=== PATIENT | female | born 1980 | race Caucasian/White ===

== ENCOUNTER → 2017-09-26 | Outpatient (REF) | payer OTHER | LOC: M LAB REF 09:19 | DX: J02.9 Acute pharyngitis, unspecified (principal) ==

== ENCOUNTER → 2018-10-18 | Outpatient (REF) | payer OTHER ==
[2018-10-21 14:14] LABS: HPV HYBRID CAPTURE II Negative (Negative)
== END ==
LOC: M LAB REF 18:44
PROVIDERS: ATTEND Advanced Practice Midwife
DX: Z12.4 Encounter for screening for malignant neoplasm of cervix (principal); R87.615 Unsatisfactory cytologic smear of cervix
CPT/HCPCS: 87624; G0123

== ENCOUNTER → 2019-02-11 | Outpatient (REF) | payer OTHER ==
[2019-02-11 17:30] LABS: APPEARANCE, URINE CLOUDY (CLEAR); BACTERIA, URINE AUTO NEGATIVE (NEGATIVE); BILIRUBIN, URINE AUTO NEGATIVE (NEGATIVE); BLOOD, URINE BLOOD 1+ (NEGATIVE); COLOR, URINE YELLOW (YELLOW); GLUCOSE, URINE (UA) AUTO NEGATIVE (NEGATIVE); KETONE, URINE AUTO NEGATIVE (NEGATIVE); LEUKOCYTE ESTERASE, URINE AUTO 3+ (NEGATIVE); MUCUS, URINE SMALL (NEGATIVE); NITRITE, URINE AUTO NEGATIVE (NEGATIVE); PROTEIN, URINE AUTO NEGATIVE (NEGATIVE); RBC, URINE AUTO 18 /HPF (0-3); SPECIFIC GRAVITY URINE AUTO 1.019 (1.002-1.035); SQUAMOUS EPITHELIAL CELL UR AU 2 /HPF (0-6); UROBILINOGEN, URINE AUTO 0.2 mg/dL (0.0-2.0); WBC, URINE AUTO 177 /HPF (0-3)
== END ==
LOC: M LAB REF 16:30
PROVIDERS: ATTEND Physician Assistant
DX: N39.0 Urinary tract infection, site not specified (principal)

== ENCOUNTER → 2019-03-28 | Outpatient (CLI) | payer OTHER ==
[2019-03-28 19:22] LABS: BASO % 0.5 % (0.0-1.0); EOS # 0.1 10^3/uL (0.0-0.5); EOS % 1.6 % (0.0-3.0); HEMATOCRIT 36.9 % (36.0-47.0); LYMPH # 1.1 10^3/uL (1.5-5.0); LYMPH % 17.2 % (24.0-44.0); MEAN CORPUSCULAR HEMOGLOBIN 30.2 pg (27.0-33.0); MEAN CORPUSCULAR HGB CONC 32.5 g/dl (32.0-36.5); MEAN CORPUSCULAR VOLUME 92.7 fl (80.0-96.0); MONO # 0.3 10^3/uL (0.0-0.8); MONO % 4.7 % (0.0-5.0); NEUTROPHILS # 4.8 10^3/uL (1.5-8.5); NEUTROPHILS % 75.5 % (36.0-66.0); PLATELET COUNT, AUTOMATED 236 10^3/uL (150-450); RED BLOOD COUNT 3.98 10^6/uL (4.00-5.40); WHITE BLOOD COUNT 6.4 10^3/uL (4.0-10.0)
[2019-03-28 21:43] LABS: CHLAMYDIA DNA AMPLIFICATION NEGATIVE (NEGATIVE); GC DNA AMPLIFICATION NEGATIVE (NEGATIVE)
[2019-03-30 08:30] LABS: HIV 1&2 SCREEN CENTAUR NEGATIVE (NEGATIVE); RUBELLA IgG QUALITATIVE IMMUNE (IMMUNE)
[2019-03-30 10:08] LABS: HEPATITIS C VIRUS ABY INDEX 0.1 INDEX (<0.8)
== END ==
LOC: M SMT 15:44
PROVIDERS: ATTEND Advanced Practice Midwife
DX: Z34.81 Encounter for supervision of other normal pregnancy, first trimester (principal); Z3A.00 Weeks of gestation of pregnancy not specified

== ENCOUNTER → 2019-05-16 | Outpatient (CLI) | payer OTHER ==
--- NOTE | 2019-05-16 19:32 | REP ---
Obstetric sonography: History: Supervision of . For anatomy. Advanced maternal age. Findings: Scanning demonstrates a viable single intrauterine cephalic lie. motion is observed and heart rate is recorded at 139 beats per minute. An anterior grade zero placenta is seen without evidence of previa or abruption. Amniotic fluid is subjectively normal. Closed cervical length is 3.9 cm. No extrauterine abnormalities observed. No anomaly is seen. The following anatomic structures are identified and felt to be sonographically unremarkable: cranium, choroid plexus, cavum, cerebellum and posterior fossa, face and profile, lungs, four-chamber heart with left and right ventricular outflow tract views, diaphragm, left-sided stomach, abdominal wall cord insertion, three-vessel cord, kidneys and bladder, spine, and upper and lower extremities. Biometry chart: BPD 4.3 cm 18 weeks 6 days Head circumference 15.7 cm 18 weeks 4 days Abdominal circumference 14.7 cm 20 weeks 0 days Femur length 2.8 cm 18 weeks 3 days Humeral length 2.8 cm 19 weeks 0 days HC/AC ratio normal 1.07 cephalic index normal 0.76 estimated weight 278 grams, 0 pounds 9 ounces, 54th percentile for 19 weeks 0 days. Impression: Viable single intrauterine gestation at 19 weeks 0 days by today's composite sonographic criteria. ZENON by today's sonography October 10, 2019. No anomaly is seen. Electronically Signed by Camilo Hoffman MD 05/16/2019 07:45 P
== END ==
LOC: M RAD 16:08
PROVIDERS: ATTEND Advanced Practice Midwife
DX: O09.522 Supervision of elderly multigravida, second trimester (principal)

== ENCOUNTER → 2019-07-18 | Outpatient (CLI) | payer OTHER ==
[2019-07-18 12:34] LABS: HEMATOCRIT 31.1 % (36.0-47.0); HEMOGLOBIN 9.6 g/dl (12.0-15.5); MEAN CORPUSCULAR HEMOGLOBIN 27.5 pg (27.0-33.0); MEAN CORPUSCULAR HGB CONC 30.9 g/dl (32.0-36.5); MEAN CORPUSCULAR VOLUME 89.1 fl (80.0-96.0); PLATELET COUNT, AUTOMATED 193 10^3/uL (150-450); RED BLOOD COUNT 3.49 10^6/uL (4.00-5.40); WHITE BLOOD COUNT 6.6 10^3/uL (4.0-10.0)
== END ==
LOC: M PLALAB 08:01
PROVIDERS: ATTEND Advanced Practice Midwife
DX: Z34.82 Encounter for supervision of other normal pregnancy, second trimester (principal)

== ENCOUNTER → 2019-08-01 | Outpatient (CLI) | payer OTHER | LOC: M LAB 07:48 | PROVIDERS: ATTEND Advanced Practice Midwife | DX: Z79.899 Other long term (current) drug therapy (principal) ==

== ENCOUNTER → 2019-08-15 | Outpatient (CLI) | payer OTHER ==
--- NOTE | 2019-08-15 09:32 | REP ---
Third trimester obstetric ultrasound for gestational diabetes: No anomalies are identified on the prior ultrasound study of 05/16/2019. There is a single intrauterine gestation in a breech presentation. There is motion and cardiac activity. The heart rate is 120 beats per minute. The placenta is fundal. There is no previa or abruptio. The placenta is grade II. The amniotic fluid volume subjectively is normal. The amniotic fluid index is 15.3 (8.6 - 24.2). The cervix measures through 3.6 cm. Gestational age by today's ultrasound is 32 weeks 3 days/ZENON 10/07/2019. Gestational age by the first ultrasound is 32 weeks 0 days/ZENON 10/10/2019. Gestational age by LMP is 34 weeks 0 days/ZENNO 09/26/2019. weight is 2048 grams/4 pounds, 8 ounces. This is the 60th percentile for 32 weeks 0 days. This is the 24th percentile for 34 weeks 0 days. Electronically Signed by Jermaine Wiseman MD 08/15/2019 09:24 A
== END ==
LOC: M WHC 07:55
PROVIDERS: ATTEND Obstetrics & Gynecology
DX: O24.415 Gestational diabetes mellitus in pregnancy, controlled by oral hypoglycemic drugs (principal)

== ENCOUNTER → 2019-09-09 | Outpatient (CLI) | payer OTHER ==
--- NOTE | 2019-09-09 15:07 | REP ---
OB ULTRASOUND: Real-time sonographic evaluation of the gravid uterus is performed. There is a single living intrauterine gestation. The estimated gestational age is 35 weeks 4 days, EDC 10/10/2019. Today's measurements indicate appropriate growth. BPD 91 mm = 37 weeks 1 day, 71st percentile HC 345 mm = 39 weeks 6 days, over 95th percentile AC 344 mm = 37 weeks 2 days, 75th percentile FL 68 mm = 35 weeks 1 day, 43rd percentile HC/AC ratio 1.03, within normal range of 0.93 to 1.12. Estimated weight 3085 grams, 75th percentile. Cervix is closed and measures 3.5 cm in length. heart rate 150 beats per minute. Amniotic fluid within normal limits. ERICA 20.2, within normal range of 7.8 to 24.9. Visualized anatomy today includes four chamber heart, stomach, three vessel cord, kidneys and bladder which are grossly unremarkable. position vertex. Placenta fundal and grade 2 with no previa or abruption.
== END ==
LOC: M WHC 13:32
PROVIDERS: ATTEND Obstetrics & Gynecology
DX: O24.415 Gestational diabetes mellitus in pregnancy, controlled by oral hypoglycemic drugs (principal); Z3A.00 Weeks of gestation of pregnancy not specified

== ENCOUNTER → 2019-09-13 | Outpatient (REF) | payer OTHER | LOC: M SFHCWAGY 16:49 | PROVIDERS: ATTEND Obstetrics & Gynecology | DX: Z3A.36 36 weeks gestation of pregnancy (principal) ==

== ENCOUNTER 2019-09-28 22:07 | Inpatient (IN) | payer OTHER ==
[~2019-09-28] VITALS: Ht 157.5 cm; Wt 76.5 kg
[2019-09-28] MEDS: miSOPROStol 50 MCG 1/2 TAB (S0191) SL SCH (22:58)
[2019-09-28] MEDS ORDERED: PRENTAB9 PO (23:00)
[2019-09-28] MEDS ORDERED: IRON65TA2 PO (23:00)
[2019-09-28] MEDS ORDERED: METF-839 PO (23:00)
[2019-09-28 23:11] LABS: HEMATOCRIT 36.2 % (36.0-47.0); HEMOGLOBIN 11.6 g/dl (12.0-15.5); MEAN CORPUSCULAR HEMOGLOBIN 27.6 pg (27.0-33.0); MEAN CORPUSCULAR VOLUME 86.2 fl (80.0-96.0); PLATELET COUNT, AUTOMATED 188 10^3/uL (150-450); WHITE BLOOD COUNT 5.7 10^3/uL (4.0-10.0)
--- NOTE | 2019-09-28 23:41 | HPE ---
DATE OF ADMISSION: 09/28/2019 39-year-old, G4, P3 female at 38-2/7 weeks gestation by 12-week ultrasound, estimated date of confinement (EDC) of 10/10/2019, presents for labor induction. The indication for induction less than 39 weeks is gestational diabetes requiring oral hypoglycemic agents. She denies contractions or vaginal bleeding. COURSE: The patient initiated care at [facility]. Patient had an abnormal 3-hour glucose tolerance test and was started on metformin. She had normal antepartum testing and growth ultrasound. OBSTETRICAL HISTORY: 1. In 2006, term vaginal delivery 9-pound 1-ounce male infant. 2. In 2009, term vaginal delivery 7-pound 14-ounce male infant. 3. In 2011, term vaginal delivery 7-pound 1-ounce female infant. MEDICAL HISTORY: Noncontributory. SURGICAL HISTORY: Noncontributory. ALLERGIES: None. SOCIAL HISTORY: Patient is . She lives in [place]. She denies cigarettes, alcohol, or drug use. FAMILY HISTORY: Noncontributory. PHYSICAL EXAMINATION: Blood pressure 134/74, pulse 84, afebrile. No apparent distress. HEAD/NECK EXAM: Normal. LUNGS: Clear. HEART: Regular rate and rhythm. ABDOMEN: Nontender. Gravid. heart tones category 1. STERILE VAGINAL EXAM: 2, 15, -2, posterior, soft, vertex. EXTREMITIES: Nontender. LABS: GBS negative. Blood type B positive. ASSESSMENT: 39-year-old, G4, P3 female at 38-2/7 weeks gestation with type 2 diabetes on metformin presents for labor induction. PLAN: Patient is admitted on 09/28/2019.
[2019-09-29] VITALS (64 sets, daily range): BP systolic 94–141; BP diastolic 50–73
[2019-09-29] MEDS: miSOPROStol 50 MCG 1/2 TAB (S0191) SL SCH (03:01)
[2019-09-29] MEDS ORDERED: metFORMIN (GLUCOPHAGE) 500 MG TAB PO ONE (08:00)
[2019-09-29] MEDS ORDERED: LR 1,000 ML IV SCH (14:21)
[2019-09-29] MEDS ORDERED: OXYTOCIN DRIP 30 UNITS in IV 1 EA IV SCH (14:30)
[2019-09-29] MEDS ORDERED: FENTANYL 2MCG/ML ROPIVACAINE 0.2% IN 0.9% NACL 100ML IVBAG As Ordered ONE ×2 (15:48→21:49)
[2019-09-29] MEDS ORDERED: ePHEDrine SULFATE 25 MG/5 ML(5MG/ML) SYRINGE IV PRN (16:45)
[2019-09-29] MEDS ORDERED: ONDANSETRON 4MG/2ML VIAL IV PRN ×2 (16:45→23:45)
[2019-09-29] MEDS ORDERED: LACTATED RINGER'S 1000 ML IV PRN (16:45)
[2019-09-29] MEDS ORDERED: FENTANYL/ROPIVACAINE/NACL BAG 100 ML EPIDURAL SCH (16:45)
[2019-09-29] MEDS ORDERED: EPIDURAL/PCA KEYS XX PRN (16:45)
[2019-09-29] MEDS ORDERED: NALOXONE INJ 0.4MG/1ML VIAL (J2310 PER 1MG) IV PRN (16:45)
[2019-09-29] MEDS ORDERED: REFRIGERATOR IV KEYS XX PRN (16:45)
[2019-09-29] MEDS ORDERED: diphenhydrAMINE 50MG/ML VIAL (J1200) IV PRN (16:45)
[2019-09-29] MEDS ORDERED: EPIDURAL COMMENT XX SCH (16:45)
[2019-09-29] MEDS ORDERED: IBUPROFEN 600 MG TAB PO PRN (23:45)
[2019-09-29] MEDS ORDERED: RHOGAM 300 MCG (1500 IU) INJ (J2790) IM SCH (23:45)
[2019-09-29] MEDS ORDERED: OXYTOCIN DRIP 30 UNITS in IV 1 EA IV ONE (23:45)
[2019-09-29] MEDS ORDERED: MEASLES,MUMPS,RUBELLA VACCINE INJ (MMR-II) (90707) SC SCH (23:45)
[2019-09-29] MEDS ORDERED: ACETAMINOPHEN TAB 650MG DOSE (2X325MG) PO PRN (23:45)
[2019-09-29] MEDS ORDERED: DIBUCAINE 1% OINTMENT 30GM TOP PRN (23:45)
[2019-09-29] MEDS ORDERED: DOCUSATE SODIUM 100 MG CAP PO PRN (23:45)
[2019-09-29] MEDS ORDERED: METHYLERGONOVINE MALEATE 0.2 MG TAB PO PRN (23:45)
[2019-09-30 00:07] VITALS: BP 147/76
[2019-09-30 00:22] VITALS: BP 132/60
[2019-09-30] MEDS: IBUPROFEN 800 MG TAB PO PRN ×3 (01:23→23:45)
[2019-09-30] MEDS: ACETAMINOPHEN 500 MG TAB PO PRN ×3 (01:24→20:24)
[2019-09-30 02:50] VITALS: BP 121/59
[2019-09-30 05:39] VITALS: BP 113/60
[2019-09-30] MEDS: PRENATAL VITAMINS CHEWABLE TABLET PO SCH (09:26)
--- NOTE | 2019-09-30 09:30 | DN ---
DATE OF DELIVERY: 09/29/2019 PREDELIVERY DIAGNOSIS: 38 weeks gestation, diabetes, induction. POSTDELIVERY DIAGNOSIS: Delivered. PROCEDURE: Spontaneous vaginal delivery. GINNER: Mehul Martinez MD ANESTHESIA: Epidural. ESTIMATED BLOOD LOSS: 300 mL. FINDINGS: 8 pound 12 ounce or 3960 gram male infant, score 9 and 10. DELIVERY SUMMARY: After a second stage of 5 minutes, the patient had spontaneously delivery of an 8 pound 12 ounce male infant, score 9 and 10, under epidural anesthesia. There was no nuchal cord. The shoulders delivered with ease. The was handed to the mother and cried immediately. The cord was doubly clamped and cut. The placenta delivered spontaneously and appeared to be intact. The patient received intravenous (IV) pitocin immediately after delivery of the placenta. A first-degree perineal laceration was repaired with #2-0 chromic in the usual fashion. Sponge and needle counts were correct.
[2019-09-30 18:00] VITALS: BP 99/61
[2019-10-01 06:03] VITALS: BP 134/63
[2019-10-01 07:30] VITALS: BP 119/73
[2019-10-01] MEDS: PRENATAL VITAMINS CHEWABLE TABLET PO SCH (08:34)
== END 2019-10-01 12:35 | disposition home or self-care (01) | DRG 807 ==
LOC: M LDI 22:07 → M OBS 09-30 02:35
PROVIDERS: ADMIT Advanced Practice Midwife; ATTEND Specialist
PROC: 3E0P7GC Introduction of Other Therapeutic Substance into Female Reproductive, Via Natural or Artificial Opening (ICD-10-PCS; 2019-09-28)
PROC: 10E0XZZ Delivery of Products of Conception, External Approach (ICD-10-PCS; principal; 2019-09-29)
PROC: 0HQ9XZZ Repair Perineum Skin, External Approach (ICD-10-PCS; 2019-09-29)
DX: O24.425 Gestational diabetes mellitus in childbirth, controlled by oral hypoglycemic drugs (principal); Z37.0 Single live birth; Z3A.38 38 weeks gestation of pregnancy; O70.0 First degree perineal laceration during delivery

== ENCOUNTER 2019-10-17 12:35 | Emergency (ER) | payer OTHER ==
[~2019-10-17] VITALS: Ht 157.5 cm; Wt 68.5 kg
[~2019-10-17 12:35] MED LIST: IRON65TA2 PO; METF-839 PO; PRENTAB9 PO
--- NOTE | 2019-10-17 13:59 | REP ---
Duplex extremity venous ultrasound: Left lower extremity. History: Left leg pain. Question DVT. Findings: The deep veins are anechoic and fully compressible from the groin to the popliteal fossa in the left lower extremity. Color flow imaging is homogeneous. Spectral Doppler interrogation demonstrates intact respiratory variation in flow and normal manual augmentation of flow. There is no evidence of deep vein thrombosis. Impression: Negative left lower extremity duplex venous ultrasound. No evidence of deep vein thrombosis. Electronically Signed by Camilo Hoffman MD 10/17/2019 01:50 P
[2019-10-17 14:09] LABS: BASO # 0.1 10^3/uL (0.0-0.2); EOS # 0.1 10^3/uL (0.0-0.5); EOS % 2.3 % (0.0-3.0); HEMATOCRIT 47.6 % (36.0-47.0); HEMOGLOBIN 14.9 g/dl (12.0-15.5); LYMPH # 1.1 10^3/uL (1.5-5.0); LYMPH % 22.4 % (24.0-44.0); MEAN CORPUSCULAR HEMOGLOBIN 27.5 pg (27.0-33.0); MEAN CORPUSCULAR HGB CONC 31.3 g/dl (32.0-36.5); MONO # 0.2 10^3/uL (0.0-0.8); MONO % 4.6 % (0.0-5.0); NEUTROPHILS # 3.3 10^3/uL (1.5-8.5); NEUTROPHILS % 69.5 % (36.0-66.0); PLATELET COUNT, AUTOMATED 233 10^3/uL (150-450); RED BLOOD COUNT 5.41 10^6/uL (4.00-5.40); WHITE BLOOD COUNT 4.8 10^3/uL (4.0-10.0)
[2019-10-17 14:19] LABS: INR 1.02; PARTIAL THROMBOPLASTIN TIME 26.8 SECONDS (25.0-38.4); PROTHROMBIN TIME 13.1 SECONDS (11.8-14.0)
[2019-10-17 14:39] LABS: ALBUMIN 3.5 GM/DL (3.2-5.2); ALT/SGPT 74 U/L (12-78); BILIRUBIN,DIRECT 0.1 MG/DL (0.0-0.2); BILIRUBIN,TOTAL 0.7 MG/DL (0.2-1.0); BLOOD UREA NITROGEN 17 MG/DL (7-18); C REACTIVE PROTEIN QUANTITATIV 0.49 MG/DL (0.00-0.30); CALCIUM LEVEL 9.3 MG/DL (8.5-10.1); CARBON DIOXIDE LEVEL 31 MEQ/L (21-32); CHLORIDE LEVEL 106 MEQ/L (98-107); CREATININE FOR GFR 0.71 MG/DL (0.55-1.30); GLOMERULAR FILTRATION RATE > 60.0 (>60); GLUCOSE, FASTING 80 MG/DL (70-100); POTASSIUM SERUM 4.2 MEQ/L (3.5-5.1); SODIUM LEVEL 141 MEQ/L (136-145); TOTAL PROTEIN 6.8 GM/DL (6.4-8.2)
[2019-10-17 15:15] VITALS: BP 109/74
== END 2019-10-17 15:16 | disposition home or self-care (01) ==
LOC: M ED 12:35
DX: M62.831 Muscle spasm of calf (principal)

== ENCOUNTER → 2021-02-25 | Outpatient (REF) | payer OTHER | LOC: M SFHCWAGY 19:09 | PROVIDERS: ATTEND Obstetrics & Gynecology | DX: Z12.4 Encounter for screening for malignant neoplasm of cervix (principal) ==

== ENCOUNTER → 2023-02-16 | Outpatient (REF) | payer OTHER | LOC: M LAB REF 17:09 | PROVIDERS: ATTEND Registered Nurse | DX: R35.0 Frequency of micturition (principal) ==

== ENCOUNTER → 2023-03-17 | Outpatient (REF) | payer OTHER | LOC: M SFHCWAGY 18:04 | PROVIDERS: ATTEND Advanced Practice Midwife | DX: Z12.4 Encounter for screening for malignant neoplasm of cervix (principal) ==

== ENCOUNTER 2024-10-01 19:29 | Emergency (ER) | payer OTHER ==
[~2024-10-01] VITALS: Ht 157.5 cm; Wt 60.5 kg
[2024-10-01 20:51] LABS: BASO # 0.1 10^3/uL (0.0-0.2); BASO % 1.2 % (0.0-1.0); EOS # 0.2 10^3/uL (0.0-0.5); EOS % 3.9 % (0.0-3.0); HEMATOCRIT 39.1 % (36.0-47.0); HEMOGLOBIN 13.1 g/dl (12.0-15.5); LYMPH # 1.1 10^3/uL (1.5-5.0); LYMPH % 27.5 % (24.0-44.0); MEAN CORPUSCULAR HEMOGLOBIN 30.8 pg (27.0-33.0); MEAN CORPUSCULAR HGB CONC 33.5 g/dl (32.0-36.5); MEAN CORPUSCULAR VOLUME 91.8 fl (80.0-96.0); MONO # 0.2 10^3/uL (0.0-0.8); MONO % 5.6 % (2.0-8.0); NEUTROPHILS # 2.5 10^3/uL (1.5-8.5); NEUTROPHILS % 61.6 % (36.0-66.0); PLATELET COUNT, AUTOMATED 194 10^3/uL (150-450); RED BLOOD COUNT 4.26 10^6/uL (4.00-5.40); WHITE BLOOD COUNT 4.1 10^3/uL (4.0-10.0)
[2024-10-01 20:57] LABS: LIPASE 36 U/L (12-53)
[2024-10-01 20:58] LABS: HCG, SERUM QUALITATIVE NEGATIVE (NEGATIVE)
[2024-10-01 20:59] LABS: ALBUMIN 4.2 G/DL (3.2-5.2); ALKALINE PHOSPHATASE 62 U/L (35-104); ALT/SGPT 24 U/L (7.0-40); AST/SGOT 16 U/L (<34); BILIRUBIN,DIRECT 0.4 MG/DL (<0.4); BILIRUBIN,TOTAL 1.5 MG/DL (0.3-1.2); BLOOD UREA NITROGEN 20 MG/DL (9-23); CALCIUM LEVEL 9.6 MG/DL (8.5-10.1); CARBON DIOXIDE LEVEL 31 MMOL/L (20-31); CHLORIDE LEVEL 104 MMOL/L (98-107); GLOMERULAR FILTRATION RATE > 90.0 (>58); GLUCOSE, FASTING 91 MG/DL (60-100); POTASSIUM SERUM 4.3 MMOL/L (3.5-5.1); SODIUM LEVEL 142 MMOL/L (136-145); TOTAL PROTEIN 7.1 G/DL (5.7-8.2)
[2024-10-01 22:35] LABS: KETONE, URINE AUTO RFX NEGATIVE (NEGATIVE); LEUKOCYTE ESTERASE UR AUTO RFX NEGATIVE (NEGATIVE); MUCUS, URINE RFX SMALL (NEGATIVE); NITRITE, URINE AUTO RFX NEGATIVE (NEGATIVE); RBC, URINE AUTO RFX 1 /HPF (0-3); SQUAM EPITHELIAL CELL UR AURFX 0 /HPF (0-6); WBC, URINE AUTO RFX 1 /HPF (0-3)
[2024-10-01] MEDS ORDERED: ISOVUE-370 76% 100ML VIAL As Ordered ONE (22:52)
[2024-10-02] MEDS ORDERED: COLA100C5 PO (00:21)
[2024-10-02] MEDS: MAGNESIUM CITRATE 300ML BTL PO ONE (00:25)
[2024-10-02 00:30] VITALS: BP 127/59; TEMP 98.3; O2SAT 97
== END 2024-10-02 00:38 | disposition home or self-care (01) ==
LOC: M ED 19:29
DX: K59.00 Constipation, unspecified (principal); R10.11 Right upper quadrant pain
CPT/HCPCS: 36415; 74177; 76705; 80048; 80076; 81001; 83690; 84703; 85025; 99284; Q9967